=== PATIENT | male | born 1995 | race Caucasian/White ===

== ENCOUNTER 2018-05-13 09:23 | Emergency (ER) | payer MEDICAID ==
[~2018-05-13] VITALS: Ht 177.8 cm; Wt 86.2 kg
[2018-05-13 09:29] VITALS: BP 97/58
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
--- NOTE | 2018-05-13 09:56 | NUR ---
PATIENT TAKEN TO CT VIA WHEELCHAIR
--- NOTE | 2018-05-13 10:08 | NUR ---
PATIENT BROUGHT BACK FROM CT
[2018-05-13] MEDS ORDERED: KETOROLAC 30 MG/ML VIAL IM ONE (10:25)
[2018-05-13 11:52] VITALS: BP 100/60
== END 2018-05-13 11:52 | disposition home or self-care (01) ==
LOC: MED 09:23
DX: R68.84 Jaw pain (principal); Y04.0XXA Assault by unarmed brawl or fight, initial encounter; Y93.89 Activity, other specified; Y99.8 Other external cause status; Y92.89 Other specified places as the place of occurrence of the external cause
CPT/HCPCS: 70486; 90715; 99284; J1885